=== PATIENT | male | born 1970 | race Two or more races ===

== ENCOUNTER 2018-05-27 16:23 | Emergency (ER) | payer SELFPAY ==
[~2018-05-27] VITALS: Ht 170.2 cm; Wt 80.0 kg
[2018-05-27] MEDS ORDERED: BACITRACIN ZINC OINT UDPKT TOP ONE (20:45)
[2018-05-27] MEDS ORDERED: TETANUS, DIPHTHERIA, PERTUSSIS VAC/PF 0.5ML (>7YR OLD) IM ONE (20:45)
[2018-05-27] MEDS ORDERED: IBUPROFEN 600MG TABLET PO ONE (20:45)
[2018-05-27] MEDS ORDERED: LIDOCAINE HCL/PF 1% 10 MG/ML 5ML VIAL IJ ONE (21:00)
[2018-05-27 22:44] VITALS: BP 140/80
== END 2018-05-27 22:45 | disposition home or self-care (01) ==
LOC: ER 16:23
DX: S02.2XXA Fracture of nasal bones, initial encounter for closed fracture (principal); W22.8XXA Striking against or struck by other objects, initial encounter; Y93.89 Activity, other specified; Y92.89 Other specified places as the place of occurrence of the external cause; Y99.8 Other external cause status
CPT/HCPCS: 70450; 70486; 90471; 90715; 99284; J3490; Z7610

== ENCOUNTER 2018-06-01 09:58 | Emergency (ER) | payer SELFPAY ==
[~2018-06-01] VITALS: Ht 177.8 cm; Wt 107.0 kg
[2018-06-01 12:13] VITALS: BP 155/83
[2018-06-01] MEDS ORDERED: BACITRACIN ZINC OINT UDPKT TOP ONE (12:30)
== END 2018-06-01 12:45 | disposition home or self-care (01) ==
LOC: ER 11:08
DX: S01.81XD Laceration without foreign body of other part of head, subsequent encounter (principal); S01.21XD Laceration without foreign body of nose, subsequent encounter; X58.XXXD Exposure to other specified factors, subsequent encounter
CPT/HCPCS: 99281; Z7610